=== PATIENT | female | born 1930 | race Caucasian/White ===

== ENCOUNTER 2017-03-27 12:24 | Emergency (ER) | payer MEDICARE ==
[2017-03-27 14:04] LABS: Hematocrit 44 % (35-47); Hemoglobin 14.6 g/dl (12.0-16.0); Mean Corpuscular HGB Conc 33 g/dl (31-36); Mean Corpuscular Hemoglobin 31 pg (27-31); Mean Corpuscular Volume 92 fL (80-97); Mean Platelet Volume 9 um3 (7.4-10.4); Red Blood Count 4.78 10^6/ul (4.0-5.4); Red Cell Distribution Width 14 % (10.5-15); White Blood Count 9.2 10^3/ul (3.5-10.8)
[2017-03-27 14:24] LABS: BUN/Creatinine Ratio 21.7 (8-20); C Reactive Protein 1.31 mg/L (< 5.00); EGFR Non-African American 80.1 (>60); Potassium 3.5 mmol/L (3.5-5.0); Uric Acid 4.5 mg/dL (2.3-6.6)
--- NOTE | 2017-03-27 14:32 | RAD ---
Indication: Atraumatic LEFT knee pain. Comparison: No relevant prior exams available on the [facility]. Technique: AP and crosstable lateral views LEFT knee. Report: Large suprapatellar joint effusion without gross fat fluid level. No cortical disruption or gross trabecular impaction evident to indicate fracture. Osteophytosis most prominent at the lateral joint compartment or in moderately severe lateral joint space narrowing with associated partial flattening of the articular surfaces and subchondral sclerosis. Mild anterior and lateral soft tissue swelling. Peripheral vascular calcifications. IMPRESSION: 1. Large joint effusion without visualized abscess fluid level or conspicuous fracture. 2. As bone density appears decreased a subtle insufficiency fracture is not entirely excluded given unexplained joint effusion. 3. If there is clinical concern for potential septic arthritis joint aspiration would be suggested. 4. Osteoarthritis most prominent at the lateral joint compartment.
[2017-03-27 14:49] LABS: Erythrocyte Sed Rate 11 mm/Hr (0-40)
[2017-03-27] MEDS ORDERED: HYDROcodone/ACETAMIN 5-325 MG* 1 TAB PO ONE (15:17)
[2017-03-27] MEDS ORDERED: HYDROcodone/ACETAMIN 5-325 MG* 1 TAB ONE (16:04)
[2017-03-27 16:14] VITALS: BP 191/119
--- NOTE | 2017-03-29 23:19 | ED ---
Alberto Rivero Rebecca, scribed for Patric Myers MD on 03/27/17 at 1333 . Lower Extremity - HPI Summary HPI Summary: Pt is an 87 y/o F who presents to ED c/o left knee pain. Pain began gradually at approximately 1030 and has been constant since onset. Pain is discrete to the left knee without radiation. When asked, pt reports pain as moderate, though she reported it as severe previously in triage. Sx aggravated by walking , alleviated by nothing. Denies fever, CP, SOB. Denies pain in any other joints. Negative for any recent trauma or injury. Reports a slight increase in activity recently. States she can typically walk without the use of a cane or walker. No PMHx arthritis, gout or injury to the L knee. No PSHx to the L knee. - History of Current Complaint Chief Complaint: EDExtremityLower Stated Complaint: LT LEG PAIN, WEAKNESS Time Seen by Provider: 03/27/17 13:26 Hx Obtained From: Patient Onset of Pain: Hours, Prior to Arrival Onset/Duration: Still Present Severity Initially: Severe Severity Currently: Moderate Pain Intensity: 10 Pain Scale Used: 0-10 Numeric Timing: Constant Location: Is Discrete @ - L knee Character Of Pain: Sharp Associated Signs And Symptoms: Positive: Negative. Negative: Fever Aggravating Factor(s): Ambulation Alleviating Factor(s): Nothing - Allergies/Home Medications Allergies/Adverse Reactions: Allergies Allergy/AdvReac Type Severity Reaction Status Date / Time No Known Allergies Allergy Verified 10/11/16 14:59 Home Medications: Home Medications Aspirin TAB* [Aspirin 325 MG TAB*] 162.5 mg PO DAILY 03/27/17 [History Confirmed 03/27/17] Atenolol TAB* [Tenormin TAB* 50 MG] 50 mg PO DAILY 03/27/17 [History Confirmed 03/27/17] Calcium Carbonate-Vitamin D [Calcium 600 + D] 1 tab PO BID 03/27/17 [History Confirmed 03/27/17] Conjugated Estrogens VAG CM* [Premarin VAG CREAM*] 1 applic VAGINAL BEDTIME 04/07 [History Confirmed 03/27/17] Ibuprofen TAB* [Advil TAB*] 400 mg PO Q6H PRN 03/27/17 [History Confirmed ] Ondansetron TAB* [Zofran 4 MG Tab*] 4 mg PO Q4HR PRN 03/27/17 [History Confirmed 03/27/17] PMH/Surg Hx/FS Hx/Imm Hx Endocrine/Hematology History: Denies: Hx Diabetes Musculoskeletal History: Denies: Hx Rheumatoid Arthritis, Hx Gout Infectious Disease History: No Infectious Disease History: Denies: Traveled Outside the [place] in Last 30 Days - Family History Known Family History: Positive: Other - Negative for arthritis - Social History Alcohol Use: Rare Substance Use Type: Reports: None Smoking Status (MU): Never Smoked Tobacco Review of Systems Negative: Fever, Chills Negative: Erythema Negative: Sore Throat Negative: Chest Pain Negative: Shortness Of Breath, Cough Negative: Abdominal Pain, Vomiting, Nausea Negative: dysuria, hematuria Positive: Arthralgia - L knee pain; negative for pain in other joints. Negative : Myalgia, Edema Negative: Rash Neurological: Other - Negative dizziness All Other Systems Reviewed And Are Negative: Yes Physical Exam - Summary Physical Exam Summary: Constitutional: Well-developed, Well-nourished, Alert. (-) Distressed Skin: Warm, Dry HENT: Normocephalic; Atraumatic Eyes: Conjunctiva normal Neck: Musculoskeletal ROM normal neck. (-) JVD, (-) Stridor, (-) Tracheal deviation Cardio: Rhythm regular, rate normal, Heart sounds normal; Intact distal pulses; The pedal pulses are 2+ and symmetric. Radial pulses are 2+ and symmetric. (-) Murmur Pulmonary/Chest wall: Effort normal. (-) Respiratory distress, (-) Wheezes, (-) Rales Abd: Soft, (-) Tenderness, (-) Distension, (-) Guarding, (-) Rebound Musculoskeletal: (-) Edema, L knee effusion, minimal active ROM, she resists passive ROM due to pain. There is no warmth or erythema to the knee, no redness. Distal sensation and pulses are intact. Lymph: (-) Cervical adenopathy Neuro: Alert, Oriented x3 Psych: Mood and affect Normal Triage Information Reviewed: Yes Vital Signs On Initial Exam: Initial Vitals Temp Pulse Resp BP Pulse Ox 98.2 F 74 17 200/105 98 03/27/17 12:35 03/27/17 12:35 03/27/17 12:35 03/27/17 12:35 03/27/17 12:35 Vital Signs Reviewed: Yes - Andre Coma Scale Coma Scale Total: 15 Diagnostics - Vital Signs Vital Signs Temp Pulse Resp BP Pulse Ox 03/27/17 13:17 79 21 196/119 95 03/27/17 13:10 18 03/27/17 12:40 98.2 F 74 17 200/105 98 03/27/17 12:35 98.2 F 74 17 200/105 98 - Laboratory Result Diagrams: 03/27/17 13:55 03/27/17 13:55 Lab Statement: Any lab studies that have been ordered have been reviewed, and results considered in the medical decision making process. - Radiology Knee XR Radiology Interpretation Completed By: Radiologist - 1. Large joint effusion without visualized abscess fluid level or conspicuous fracture. 2. As bone density appears decreased a subtle insufficiency fracture is not entirely excluded given unexplained joint effusion. 3. If there is clinical concern for potential septic arthritis joint aspiration would be suggested. 4. Osteoarthritis most prominent at the lateral joint compartment. Re-Evaluation - Re-Evaluation First Eval Re-Evaluation Time: 15:13 Change: Unchanged Comment: Discussed XR results with the pt and the possibility of a fracture. Discussed possibility of a wheelchair for D/C as opposed to crutches. Reports that she would prefer a very mild pain medication. Lower Extremity Course/Dx - Course Assessment/Plan: Pt is an 87 y/o F who presents to ED with a CC of moderate/ severe L knee pain since 1030 this morning. Denies fever, chills, SOB. No PMHx arthritis or PSHx on the L knee. Knee XR reveals "1. Large joint effusion without visualized abscess fluid level or conspicuous fracture. 2. As bone density appears decreased a subtle insufficiency fracture is not entirely excluded given unexplained joint effusion. 3. If there is clinical concern for potential septic arthritis joint aspiration would be suggested. 4. Osteoarthritis most prominent at the lateral joint compartment." Discussed care of pt with Dr. Recinos, orthopedics, discussing that she will be in a wheelchair and knee immobilizer. She will call the office tomorrow to set up an appointment for the next 1-2 days. Pt has been hypertensive throughout her visit today, suspected to be due to pain, but she is asymptomatic from hypertension. Pt will be D/C to home with Dx of osteoporosis, knee effusion and cannot r/o fracture, with a follow up with orthopedics. - Diagnoses Differential Diagnosis/HQI/PQRI: Positive: Arthritis, Gout, Septic Arthritis Provider Diagnoses: Osteoporosis, Knee effusion, cannot rule out fracture - Physician Notifications Discussed Care Of Patient With: Curtis Recinos - Discussed that she will be in a wheelchair and knee immobilizer. Time Discussed With Above Provider: 15:37 Discharge - Discharge Plan Condition: Stable Disposition: HOME Prescriptions: HYDROcodone/ACETAMIN 5-325 MG* [[place] 5-325 TAB*] 0.5 tab PO Q8H PRN #6 tab MDD 1.5 PRN Reason: Pain Scale 6-10 Patient Education Materials: Osteoporosis (ED), Swollen Knee Joint (ED) Referrals: Curtis Recinos MD [Medical Doctor] - (Call Dr. Recinos's office tomorrow to set up an appointment in the next 1-2 days. ) The documentation as recorded by the Alberto cevallos Rebecca accurately reflects the service I personally performed and the decisions made by me, Patric Myers MD.
== END 2017-03-27 16:11 | disposition home or self-care (01) ==
LOC: ED 12:24
DX: M81.0 Age-related osteoporosis without current pathological fracture (principal); M25.462 Effusion, left knee; Z79.82 Long term (current) use of aspirin
CPT/HCPCS: 36415; 80048; 84550; 85027; 85652; 86140; 87040; 99283

== ENCOUNTER 2017-12-06 11:40 | Inpatient (IN) | payer MEDICARE ==
[2017-12-06] MEDS ORDERED: NS 0.9% 1000 ML* 1,000 ML IV ONE (11:41)
[2017-12-06 12:03] LABS: ABS Basophils 0.1 10^3/ul (0-0.2); ABS Eosinophils 0 10^3/ul (0-0.6); ABS Lymphocytes 0.8 10^3/ul (1.0-4.8); ABS Monocytes 0.9 10^3/ul (0-0.8); ABS Neutrophils 10.4 10^3/ul (1.5-7.7); ABS Nucleated RBC 0 10^3/ul; Eosinophil % 0.4 % (0-6); Hematocrit 40 % (35-47); Hemoglobin 13.5 g/dl (12.0-16.0); Lymphocyte % 6.7 % (25-47); Mean Corpuscular HGB Conc 34 g/dl (31-36); Mean Corpuscular Hemoglobin 30 pg (27-31); Mean Corpuscular Volume 90 fL (80-97); Mean Platelet Volume 8 um3 (7.4-10.4); Nucleated Red Blood Cells % 0; Platelet Count 213 10^3/ul (150-450); Red Blood Count 4.46 10^6/ul (4.0-5.4); Red Cell Distribution Width 15 % (10.5-15); White Blood Count 12.2 10^3/ul (3.5-10.8)
--- NOTE | 2017-12-06 12:03 | RAD ---
INDICATION: Neurologic changes code cardenas. COMPARISON: There are no prior studies available for comparison. TECHNIQUE: Contiguous axial sections of the brain were obtained from the skull base to the vertex without contrast. FINDINGS: The ventricles, cisterns and sulci are enlarged consistent with diffuse atrophy. There are multiple focal areas of decreased density in the subcortical and periventricular white matter suggestive of moderate to severe chronic small vessel ischemic changes. No other focal abnormality or mass effect is seen. There is no evidence for hemorrhage. There is enlargement of the proximal left middle cerebral artery measuring up to 7 mm in size consistent with either an aneurysm or ectasia. There is mild mucosal thickening within the right maxillary sinus. The visualized portion of the paranasal sinuses and mastoid air cells otherwise appear clear. The results of this exam were called to the referring clinician at 1155 hours. IMPRESSION: 1. NO EVIDENCE FOR GROSS ACUTE INFARCT, MASS EFFECT OR HEMORRHAGE. 2. POSSIBLE ANEURYSM OF THE LEFT MIDDLE CEREBRAL ARTERY RECOMMEND A CT ANGIOGRAM FOR FURTHER EVALUATION. 2. ATROPHY AND MODERATE TO SEVERE CHRONIC SMALL VESSEL ISCHEMIC CHANGES.
[2017-12-06 12:13] LABS: INR 1.1 (0.77-1.02)
[2017-12-06 12:20] LABS: EGFR Non-African American 84.3 (>60)
[2017-12-06] MEDS ORDERED: Iodixanol* (CONTRAST) 320 MG/ML 100 ML SDV IV ONE (12:32)
[2017-12-06 12:50] LABS: Urine Appearance Cloudy; Urine Blood 1+ (Negative); Urine Color Yellow; Urine Ketones Negative (Negative); Urine Protein 1+(30 mg/dL) (Negative); Urine Specific Gravity 1.025 (1.010-1.030); Urine Urobilinogen Negative (Negative)
--- NOTE | 2017-12-06 13:07 | RAD ---
HISTORY: Left-sided weakness COMPARISONS: Head CT dated December 06, 2017 TECHNIQUE: Multiple contiguous axial CT scans were obtained of the head and neck after the administration of nonionic intravenous contrast timed to the systemic arterial phase of contrast enhancement. Coronal and sagittal multiplanar reformations are submitted for review. Multiple 3-D maximum intensity projection reconstructions are also submitted for review. FINDINGS: CTA NECK: AORTIC ARCH: There is calcific atherosclerotic disease of the aortic arch, without ostial or proximal stenosis of the cephalic great vessels. The left vertebral artery originates from the aortic arch.. RIGHT VERTEBRAL ARTERY: The right vertebral artery is patent along its course, without stenosis. LEFT VERTEBRAL ARTERY: The left vertebral artery is patent along its course, without stenosis. DOMINANCE: The right vertebral artery is dominant. RIGHT COMMON CAROTID ARTERY: The right common carotid artery is patent. The right carotid bifurcation occurs at C5-C6 RIGHT INTERNAL CAROTID ARTERY: There is atheromatous disease of the right carotid bifurcation, without right internal carotid artery stenosis by NASCET criteria. RIGHT EXTERNAL CAROTID ARTERY: The right external carotid artery is unremarkable. LEFT COMMON CAROTID ARTERY: The left common carotid artery is patent. The left carotid bifurcation occurs at C4-C5 LEFT INTERNAL CAROTID ARTERY: There is atheromatous disease of the left carotid bifurcation, without left internal carotid artery stenosis by NASCET criteria. LEFT EXTERNAL CAROTID ARTERY: The left external carotid artery is unremarkable. VENOUS CIRCULATION: The venous system is unremarkable. SALIVARY GLANDS: The parotid glands, submandibular glands, sublingual glands are normal. NASAL CAVITY/NASOPHARYNX: The nasal cavity and nasopharynx are normal. ORAL CAVITY/OROPHARYNX: The oral cavity is obscured by streak artifact from dental amalgam. The visualized oral cavity and oropharynx are unremarkable. LARYNGEAL APPARATUS/HYPOPHARYNX: The laryngeal apparatus and hypopharynx are normal. UPPER AIRWAY/UPPER ESOPHAGUS: The visualized upper airway and esophagus are normal. LUNG APICES: The lung apices are clear. THYROID GLAND: The thyroid gland is normal. LYMPH NODES: There is no lymphadenopathy by size criteria. BONES AND SOFT TISSUES: No bone or soft tissue abnormalities are noted. CTA HEAD: INTRACRANIAL CIRCULATION: There is no aneurysm, vascular malformation, occlusion, or stenosis of the visualized intracranial circulation. There is ectasia of the internal carotid arteries bilaterally. The anterior communicating artery complex is clear. There is a origin of the right posterior cerebral artery. VENOUS CIRCULATION: The venous system is unremarkable. PERFUSION: There is no obvious parenchymal perfusion deficit. HEMORRHAGE/INFARCT: There is no hemorrhage or acute infarct. MASSES/SHIFT: There is no mass or shift. EXTRA-AXIAL SPACES: There are no extra-axial fluid collections. SULCI AND VENTRICLES: The sulci and ventricles are normal in size and position for the patient's stated age. CEREBRUM: There is hypoattenuation of the periventricular and subcortical white matter. BRAINSTEM: There are no focal parenchymal abnormalities. CEREBELLUM: There are no focal parenchymal abnormalities. PARANASAL SINUSES: There is mucosal thickening of the maxillary sinuses bilaterally. ORBITS: The orbits are unremarkable. BONES AND SOFT TISSUE: Degenerative changes are noted of the spine OTHER: There is no abnormal enhancement. IMPRESSION: 1. NO INTERNAL CAROTID ARTERY STENOSIS BY NASCET CRITERIA. 2. THERE IS ECTASIA OF THE SUPRACLINOID INTERNAL CAROTID ARTERIES BILATERALLY. NO ANEURYSM, VASCULAR MALFORMATION, OCCLUSION, OR STENOSIS OF THE VISUALIZED INTRACRANIAL CIRCULATION.. 3. CHRONIC SMALL VESSEL ISCHEMIC CHANGE. CPT II Codes: 3100F
--- NOTE | 2017-12-06 13:22 | RAD ---
Indication: Neurological changes; code cardenas. LEFT side weakness, facial droop, slurred speech. Comparison: September 23, 2004 Technique: Upright AP 1240 hours Report: No focal pulmonary lesion, compelling alveolar consolidation, pleural effusion, pneumothorax. Upper normal heart size accounting for portable AP technique and leftward rotation. Unremarkable central pulmonary vasculature and mediastinal contours. Advanced osteoarthritis at the RIGHT glenohumeral joint noted. IMPRESSION: No evidence for acute intrathoracic disease.
[2017-12-06] MEDS ORDERED: LORazepam INJ* 2 MG/ML 1 ML VIAL IV PUSH ONE ×2 (13:39→14:20)
[2017-12-06] MEDS ORDERED: LORazepam INJ* 2 MG/ML 1 ML VIAL ONE (13:41)
[2017-12-06] MEDS: Labetalol IV* 5 MG/ML 20 ML VIAL IV PUSH ONE ×2 (13:49→14:08)
[2017-12-06] MEDS ORDERED: Aspirin EC Low Dose* 81 MG TAB.EC PO SCH (14:00)
[2017-12-06] MEDS ORDERED: hydrALAZINE IV* 20 MG/ML VIAL IV SLOW PU PRN (14:46)
[2017-12-06] MEDS ORDERED: Acetaminophen TAB* 325 MG PO PRN (14:46)
[2017-12-06] MEDS ORDERED: Ondansetron INJ* 2 MG/ML VIAL IV PRN (14:46)
[2017-12-06] MEDS ORDERED: NS 0.9% 1000 ML* 1,000 ML IV SCH (15:00)
[2017-12-06] MEDS ORDERED: cefTRIAXone(*) 1 GM in D5W 50 ML BAG* 50 ML IVPB SCH (15:00)
--- NOTE | 2017-12-06 15:41 | RAD ---
HISTORY: Left-sided weakness COMPARISONS: Head CT dated December 06, 2014 TECHNIQUE: The following sequences were obtained of the head: Sagittal T1-weighted images, axial T2-weighted images, axial FLAIR images, axial susceptibility weighted images, axial T1-weighted images. Additionally, axial diffusion-weighted images were obtained with calculated apparent diffusion coefficients. FINDINGS: HEMORRHAGE/INFARCT: There are small foci of restricted diffusion within the right putamen, consistent with nonhemorrhagic infarct. There is no hemorrhage or acute infarct elsewhere.. MASSES/SHIFT: There is no mass or shift. EXTRA-AXIAL SPACES/MENINGES: There are no extra-axial fluid collections. SULCI AND VENTRICLES: There is diffuse and proportional enlargement of the sulci and ventricles. CEREBRUM: There is confluent elevated T2/flair signal the periventricular and subcortical white matter, including the area of restricted diffusion. BRAINSTEM: There is elevated T2/FLAIR signal within the pontine white matter. CEREBELLUM: There are chronic lacunar infarcts of the right inferior cerebellum. There is a punctate focus of susceptibility artifact within the left inferior cerebellum which may represent a hemangioma versus dystrophic calcification. The cerebellar tonsils are normal in size and position. SELLA: The sella is normal. PINEAL: The pineal region is clear. CP ANGLE/TEMPORAL BONES: The labyrinthine structures are grossly normal. VESSELS: Normal flow-voids are noted within the visualized vertebral vasculature. DIFFUSION ABNORMALITIES: As noted above, there are punctate foci of acute diffusion within the right putamen. PARANASAL SINUSES/MASTOIDS: There is mucosal thickening of the right maxillary sinus. ORBITS: The orbits are unremarkable. BONES AND SOFT TISSUE: No bone or soft tissue abnormalities are noted. OTHER: None IMPRESSION: 1. PUNCTATE FOCI OF RESTRICTED DIFFUSION WITHIN THE RIGHT BASAL GANGLIA CONSISTENT WITH SUBACUTE NONHEMORRHAGIC INFARCT. 2. DIFFUSE INVOLUTIONAL CHANGE WITH EXTENSIVE CHRONIC SMALL VESSEL ISCHEMIC CHANGES.
[2017-12-06] MEDS ORDERED: Aspirin SUPP* 300 MG PR ONE (17:05)
[2017-12-06] MEDS: cefTRIAXone(*) 1 GM in D5W 50 ML BAG* 50 ML IVPB SCH (17:28)
--- NOTE | 2017-12-06 20:01 | HP ---
CC: Dr. Thomas; Dr. Quiroz * HISTORY AND PHYSICAL: DATE OF ADMISSION: 12/06/17 PRIMARY CARE PROVIDER: Dr. Thomas. ATTENDING PHYSICIAN WHILE IN THE HOSPITAL: Dr. Jone Weaver * (report dictated by Michael Reza NP). CHIEF COMPLAINT: 1. Left-sided weakness. 2. Difficulty with speech. HISTORY OF PRESENT ILLNESS: Ms. Birch is an 87-year-old female patient. She is really unable to give much history because she has significant underlying dementia. According to old records, she has a history of hypertension, hyperlipidemia, osteoarthritis, osteoporosis, and dementia, and a history of cataracts. Most of the HPI was obtained from discussion with Dr. Quiroz, reviewing the medical chart, discussion with medical staff. I did leave a message with the patient's daughter as well and I also did review the notes from Nancy. According to Nancy notes, it was noted around 10:30, 10:45 today that they were walking with the patient. She was going for an appointment and they noticed that she was having left-sided weakness and dragging her left leg. They were immediately concerned that she may have had a stroke and they called the EMS services and brought her to the hospital. There were also reports of possible facial droop as well. Dr. Quiroz did get in touch with the family and they felt that she around 9 o'clock this morning was having difficulty with speech via phone. There was concern because she was having significant weakness. A Rafael Giraldo was called. The initial time of onset was noted to be around 10:30 to 10:45, and thought she will be a tPA candidate; however, with the question of her timing of the onset given the history obtained from the patient's daughter, tPA was not given because of unreliable time of onset. Because of concerns of stroke, we were asked to evaluate. There were no again reports of fevers, chills, or any recent illnesses on records from [facility], but the biggest complaint again was left-sided weakness, facial droop. PAST MEDICAL HISTORY: According to old records: 1. Cataracts. 2. Hypertension. 3. Dementia. 4. Hyperlipidemia. 5. Osteoarthritis. 6. Osteopenia. PAST SURGICAL HISTORY: She has had cataract extraction. MEDICATIONS: Home meds according to records include: 1. Milk of mag 30 cc p.o. daily as needed. 2. Tamiflu 75 mg p.o. daily. 3. Tylenol 650 mg p.o. b.i.d. 4. Senna or Colace 1 tablet p.o. daily. 5. Tylenol 650 mg every 6 hours as needed. 6. Atenolol 100 mg daily. 7. Aspirin 81 mg daily. ALLERGIES: No known drug allergies. FAMILY HISTORY: Unable to be obtained. SOCIAL HISTORY: According to old medical records, she does not smoke, does not drink. She does reside at [facility]. Surrogate decision maker is her daughter. REVIEW OF SYSTEMS: Unable to be obtained. PHYSICAL EXAMINATION GENERAL: At this time, Ms. Birch is an 87-year-old female patient. She is sitting in the ED stretcher. She does not appear to be in any acute distress. VITAL SIGNS: Blood pressure 193/159, last blood pressure that was recorded in the monitor was noted to be 190/80; her pulse was 88; respirations were 22; O2 sat was 95%; temperature was 99.1. HEENT: Head: Atraumatic. Eyes: Sclerae are anicteric. Pupils are equal and reactive to light. Throat: Oral mucosa appears to be dry. No oropharyngeal erythema. NECK: Supple. LUNGS: Clear to auscultation. No wheezes, rales, or rhonchi. HEART: Sounds S1, S2. Regular rate and rhythm. No murmurs, rubs, or gallops. ABDOMEN: It was soft, it was flat. Nontender. Bowel sounds were present. EXTREMITIES: She does have difficulty moving the left leg, it is weak. The vessel liner on the left side is weak. She is able to raise and lower her upper extremities. She is able to move the right extremity, she had 5/5 strength. NEUROLOGIC: She is alert to herself only. She is confused to time, place. She does have a bit of a slight facial droop on the right side. She does have a little bit of a weakened vessel liner on the left side and she is unable to really lift the left leg off the stretcher like the right leg. There are no other gross focal deficits. Her speech to me appeared to be clear. SKIN: Intact. DIAGNOSTIC STUDIES/LAB DATA: WBC 12.2, RBC of 4.46, hemoglobin 13.5, hematocrit 40, platelet count 213. INR 1.10, PTT of 27.8. Sodium was 127, potassium 3.6, chloride of 93, bicarb 29, BUN 11, creatinine of 0.66, glucose 94 , lactate 0.8, calcium 8.8. Total bili 0.5, AST 26, ALT 31, alk phos 98. Troponin 0. Albumin is 3.6. Her triglycerides were 224, LDH was 126. Urine showed 1+ blood, 1+ protein, positive nitrites, trace leukocyte esterase, 1+ rbc 's, 1+ bacteria. She had multiple imaging here in the ED starting out with brain CT, impression: No evidence for gross acute infarct, mass effect, or hemorrhage. Possible aneurysm in the left MCA. Recommend CT angiogram for further evaluation. Atrophy and moderate- to-severe chronic small vessel ischemic changes. She did have a chest x-ray obtained today, impression: No evidence for acute intrathoracic disease. She did have an EKG obtained today, there are no previous EKGs for comparison, but it did show a sinus bradycardia, rate of 59, no ST elevations or T-wave inversions were noted, they were flat in V1 only. She had a head CTA obtained as well today, impression: No internal carotid artery stenosis by NASCET criteria. 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 No aneurysm, vascular malformation, occlusion, or stenosis of the visualized intracranial circulation. Chronic small vessel ischemic changes. Old medical records were reviewed. ASSESSMENT AND PLAN: Ms. Birch is an 87-year-old female patient coming into the ED today with complaints of left-sided weakness. She will be admitted under inpatient status for: 1. Cerebrovascular accident. At this point, Dr. Quiroz did evaluate the patient. She passed bedside swallow evaluation. She will be given p.o. aspirin daily. At this point, we will allow for permissive hypertension. We will allow her diastolics to run less than a 100 and her systolics to run less than 200, so I wrote for p.r.n. hydralazine with these parameters. We will go ahead and get neuro checks every 2 hours. We will also go ahead and get an MRI of the brain. Echo has been ordered by Dr. Quiroz. We will place her on telemetry. We will check lipids in the morning as fasting and A1c as well. I will continue to follow. I did order a PT evaluation as well for tomorrow. 2. Hypertension. Again, allowing for permissive hypertension, p.r.n. hydralazine is ordered. 3. Hyperlipidemia. We will check lipid panel in the morning. Consider adding a statin. 4. Dementia. We will continue supportive care. 5. Urinary tract infection. I have ordered Rocephin for the patient. 6. Hyponatremia. This is mild hyponatremia. I am getting a urine sodium and urine osmol and serum osmol to help us try to delineate where this is deriving from. I did order some fluids. We will repeat this in the morning. 7. Osteoarthritis. Continue p.r.n. Tylenol. 8. Osteopenia. Follow with primary. 9. DVT prophylaxis. In the setting of an acute cerebrovascular accident, I am going to hold on the heparin for the first 24 hours. We will go ahead and put on SCDs and then we can start heparin palpably tomorrow. 10. Fluids, electrolytes, and nutrition. She can have a heart healthy diet. 11. Code status. She does have a MOLST form in the computer for DNR. TIME SPENT: On the admission was approximately 60 minutes, greater than half the time was spent [id number] with the patient obtaining my history and physical, other half of the time spent going over the plan of care with the patient and implementing plan of care. I did discuss plan of care with my attending, Dr. Weaver; she is in agreement. MICHAEL REZA NP [id number]/[facility] #: [id number]
--- NOTE | 2017-12-06 22:21 | CONS ---
CC: Dr. Thomas * CONSULTATION REPORT: DATE OF ADMISSION: 12/06/17 DATE OF CONSULT: 12/06/17 LOCATION: Currently in ER, bed 10. PRIMARY CARE PROVIDER: Dr. Barrett Thomas. REASON FOR CONSULTATION: Slurred speech and left-sided weakness. HISTORY OF PRESENT ILLNESS: Ms. Birch is a very nice 87-year-old female, who has a history of dementia, hypertension, fibrocystic disease of the breast, hyperlipidemia, osteoarthritis, osteopenia, skin cancer, basal cell carcinoma in 1987, constipation, shingles. She is unable to give me much history. She has moderate dementia. She was in her usual state of health when around 10:[address] to see her care provider at [facility], they noticed that her left foot was dragging, her left face was drooping, and she had a weaker environmental analyst on the left , and she was slurring her speech. Prior to that, she was able to walk to her apartment. Initially, it was reported that the time of onset of her symptoms was 10:45. I subsequently talked with her daughter, who states that she talked to her around 9:15 and at that time, she had slurring of her speech. It is unclear when those symptoms began, so last known normal is unclear at this point , but was sometime prior to 9 a.m. She lives with her , who also has dementia and is not a good historian and it has been difficult to determine when her last known normal was. In the ER, she had an NIH stroke scale of 4. She had some facial droop on the left, some very mild dysarthria. She had loss of sensation on the left and some inattention on the left. They said per the report from the assisted living facility, she seemed to have improved. When I examined her, she had no significant left-sided weakness and no drift apparent. During the course of our evaluation, she seemed to have improved more so and her speech becoming more pronounced and less dysarthric. She does remain confused, which apparently per her daughter is her baseline. There has been no reported chest pain, shortness of breath. No reported fevers that we are aware of. No reported recent illnesses. She was seen by primary care provider on 07/09; at that time, it was noted that she was wandering some. She was briefly admitted into the longterm facility, was observed there, and then sent back to live with her and adjusting well. There had been some wandering , but no dangerous behaviors. It was also noted that her blood pressure was elevated at that time and that they were considering adding another blood pressure medication. In the ER, she did have a CT scan of the head, which I reviewed the films, I agree with the findings. There was a suspicion of a left MCA aneurysm and CT angiogram was recommended. There was no evidence of any acute bleeding or acute changes. CT angiogram was subsequently done and showed some ectasia of the supraclinoid internal carotid arteries bilaterally, but no aneurysm, vascular malformation, occlusion. No stenosis was visualized, intracranial circulation. No carotid artery stenosis noted. I did review those films as well and agree. Her EKG showed some sinus bradycardia. Since admission to the ER, she seems to have improved as noted above. She has had no new symptoms. She denies any problems at this time and seems to have poor insight into her condition. PAST MEDICAL HISTORY: As noted above. She has had some skin biopsies as well in 2002. MEDICATIONS: At home include: 1. Acetaminophen 650 mg twice daily as well as as needed for pain. 2. Aspirin 81 mg daily. 3. Atenolol 100 mg daily. 4. Magnesium hydroxide. 5. Milk of magnesia 30 mL by mouth as needed. 6. Senna-S 1 tablet by mouth daily. ALLERGIES: No known drug allergies. FAMILY HISTORY: Unknown. SOCIAL HISTORY: She lives with her , who also has dementia. She has never smoked. She occasionally drinks alcohol and no reported drug use. She attends exercise class and swimming 3 times a week and walks 1 mile weekly. She is normally fairly active. REVIEW OF SYSTEMS: A 14-organ systems was difficult. She again has poor insight. Denies any current issues. Denies any headache, vision changes. She is unaware of her speech difficulties. Denies any focal weakness, numbness, tingling, or pain. No chest pain, shortness of breath, dyspnea on exertion. No problems. No musculoskeletal aches or pains. She denies any issues. PHYSICAL EXAM: Vital Signs: Temp of 97, blood pressure 156/90, O2 sat of 96%, respiratory rate of 16, pulse rate of 55. In general: She is a thin, well- developed female, in no acute distress. She is sitting in her hospital bed. She is pleasant, well dressed, well groomed. HEENT: She is normocephalic, atraumatic. Sclerae are anicteric. Mucous membranes are moist. Oropharynx is clear. Nares are patent. Neck: Supple. No thyromegaly. No carotid bruits. No meningismus. Chest: Clear to auscultation bilaterally. Cardiovascular: Bradycardic. Regular rhythm. No murmurs, gallops, or rubs. Abdomen: Scaphoid , nontender. Extremities: No clubbing, cyanosis, or edema. She has some scattered bruising. Neurologic examination: She is awake, alert. She is oriented to person. Speech is fluent. There is some mild dysarthria. Her recall is poor. Mood is dysthymic. Affect, mood congruent. Cranial nerves II through XII, pupils are equal, round, and reactive to light. Extraocular muscles are intact. Visual hanna appear full to confrontation and blink. There is no nystagmus noted. Facial sensation is intact throughout. She has a left lower facial droop when smiling. Hearing is diminished bilaterally. Tongue is midline. Palate raises symmetrically. Motor Exam: She spontaneously moves all extremity, has good resistance, 5/5 throughout with no drift in the upper and lower extremities bilaterally. Tone is normal. DTRs are 1+ in the upper extremities, trace at the patella bilaterally, trace at the ankles bilaterally. Equivocal Babinski. Sensation, she has some loss of pinprick and light touch in the left leg greater than the left arm and she seems to neglect and has some extinguishing on the left side. Gait was not tested at this time. There are no tremors noted at rest. [id number] was slow but intact without tremors or dysdiadochokinesia. DIAGNOSTIC STUDIES/LAB DATA: Lab work includes a complete metabolic profile with a sodium of 127, chloride of 93, glucose of 104. Total protein of 6.2. Triglycerides of 224, cholesterol of 228, LDL of 126, HDL of 57. Urine shows positive nitrite, 1+ blood, trace leukocyte esterase, 1+ bacteria. CBC with diff shows a white count of 12.2 with 84.9% neutrophils. INR of 1.10, PTT of 27.8. ASSESSMENT AND PLAN: Ms. Birch is an 87-year-old female with a known history of dementia, history of hypertension, hyperlipidemia, osteoarthritis, who is on an aspirin at home, presents to the hospital with onset of left-sided findings including left facial droop, left numbness, and some neglect and some dysarthria. Her symptoms seemed to have improved per the initial report from the nurse who I spoke with on the phone. Initially, her symptoms were reported to began at 10:45; but when I spoke with her daughter, her daughter states that she spoke with her around 9 o'clock and she was already having slurred speech. It is unclear when those symptoms started, so her last known normal is unknown at this time. She was not a good tPA candidate. The plan will be to admit her to the hospital for further stroke workup including MRI of the brain, echocardiogram. I will check labs to rule out reversible causes of stroke. I will continue her aspirin 81 mg daily. I will give her a dose now. We will add a statin medication given her lipid, LDL goal will be less than 70. Would allow for some permissive hypertension at this point and can add labetalol for systolic blood pressure greater than 210, diastolic blood pressure greater than 100. Monitor her on telemetry for any evidence of atrial fibrillation or arrhythmia. I defer to the primary care team regarding management of her hyponatremia and workup of that. We will monitor for any evidence of diabetes. She is a nonsmoker. We will get Speech Therapy to evaluate her and make her n.p.o. for now until she has had a bedside dysphagia swallowing study. She will likely need physical therapy as well once she is stabilized. I will continue to follow her closely and make further recommendations if necessary. Thank you for the opportunity to participate in her care. Her daughter's contact information name is Suzanne Alcaraz, telephone number is [phone] and she is the healthcare proxy. [id number]/[facility] #: [id number] [facility] THROAT HOSPITALDedra
[2017-12-07 05:21] LABS: ABS Basophils 0.1 10^3/ul (0-0.2); ABS Eosinophils 0.1 10^3/ul (0-0.6); ABS Lymphocytes 1.2 10^3/ul (1.0-4.8); ABS Monocytes 0.8 10^3/ul (0-0.8); ABS Neutrophils 8.1 10^3/ul (1.5-7.7); ABS Nucleated RBC 0 10^3/ul; Eosinophil % 0.6 % (0-6); Hematocrit 36 % (35-47); Hemoglobin 12.4 g/dl (12.0-16.0); Lymphocyte % 11.9 % (25-47); Mean Corpuscular HGB Conc 34 g/dl (31-36); Mean Corpuscular Hemoglobin 31 pg (27-31); Mean Corpuscular Volume 90 fL (80-97); Mean Platelet Volume 9 um3 (7.4-10.4); Nucleated Red Blood Cells % 0; Platelet Count 201 10^3/ul (150-450); Red Blood Count 4.03 10^6/ul (4.0-5.4); Red Cell Distribution Width 15 % (10.5-15); White Blood Count 10.2 10^3/ul (3.5-10.8)
[2017-12-07 05:34] LABS: EGFR Non-African American 113.5 (>60)
[2017-12-07] MEDS: Aspirin Low Dose CHEW TAB* 81 MG PO SCH (08:47)
[2017-12-07] MEDS: Senna TAB PO SCH (08:47)
[2017-12-07] MEDS: Oseltamivir CAP* 30 MG CAP PO SCH (08:47)
[2017-12-07] MEDS: Docusate CAP* 100 MG PO SCH (08:47)
--- NOTE | 2017-12-07 08:53 | PN ---
Subjective Date of Service: 12/07/17 Interval History: Some intermittent agitation overnight and this morning. More confused earlier this am but seems slightly improved now per the nurse. No new focal findings. Able to swallow safely but has some dysarthria. Remains weak on the left side. --MRI: reviewed films. Right basal ganglia acute stroke, atrophy noted. Agree with findings --CTA: reviewed films. No significant stenosis, no aneurysms noted. Ectasia of supraclinoid ICAs bilaterally --Echo pending Objective Active Medications: Acetaminophen (Tylenol Tab*) 650 mg PO Q4H PRN PRN Reason: FEVER/PAIN Last Admin: 12/07/17 01:21 Dose: 650 mg Aspirin (Aspirin Low Dose Tab*) 81 mg PO DAILY [facility] Atorvastatin Calcium (Lipitor*) 20 mg PO 1700 [facility] Docusate Sodium (Colace Cap*) 100 mg PO DAILY [facility] Hydralazine HCl (Apresoline Iv*) 5 mg IV SLOW PU Q6H PRN PRN Reason: SYSTOLIC BP GREATER THAN: Ceftriaxone Sodium 1 gm/ (Dextrose) 50 mls @ 200 mls/hr IVPB 1700 [facility] Last Admin: 12/06/17 17:28 Dose: 200 mls/hr Ondansetron HCl (Zofran Inj*) 4 mg IV Q6H PRN PRN Reason: NAUSEA Oseltamivir Phosphate (Tamiflu Cap*) 30 mg PO DAILY [facility] Senna (Senokot Tab*) 1 tab PO DAILY [facility] Vital Signs 12/06/17 12/06/17 12/06/17 16:05 19:35 19:39 Temperature 98.3 F 97.5 F Pulse Rate 58 66 Respiratory 16 16 Rate Blood Pressure 132/69 190/80 (mmHg) O2 Sat by Pulse 96 96 Oximetry 12/06/17 12/06/17 12/06/17 20:00 21:32 23:44 Temperature 97.8 F Pulse Rate 56 Respiratory 20 24 Rate Blood Pressure 140/80 131/72 (mmHg) O2 Sat by Pulse 94 Oximetry 12/07/17 12/07/17 03:30 07:24 Temperature 97.5 F 97.9 F Pulse Rate 56 54 Respiratory 24 24 Rate Blood Pressure 121/67 170/80 (mmHg) O2 Sat by Pulse 93 94 Oximetry Oxygen Devices in Use Now: None Neurology Exam: General: Awake, Alert, Oriented x3 HEENT: Normocephalic/atraumatic, sclera anicteric, mucous membranes moist Neck: Supple Chest: Clear to auscultation bilaterally Cardiovascular: Regular rate and rhythm without murmurs, rubs, gallops Abdomen: Soft, nontender/nondistended Extremities: No clubbing, cyanosis, or edema Neurological Findings: Awake, Alert, oriented X person, "hospital," sitting up eating breakfast Speech: fluent with mild dysarthria, no aphasia Cranial Nerve: PEERL, EOM intact, VFF, no nystagmus, left lower facial droop, stable, hearing diminished bilaterally, palate elevates symmetrically, tongue midline Motor: 5/5 with good resistance on the right, no drift. 4/5 proximal and distal LUE with drift, 4/5 proximal weakness and 4+/5 on the LLE Sensation: Difficult exam but seems diminished on the left arm and leg. Neglect on the left side noted Deep Tendon Reflex: 2+ symmetric in the upper/lower extremities, Babinski - equivocla Finger to nose, rapid alternating movements intact without tremor, slower on the left side Result Diagrams: 12/07/17 04:50 12/07/17 04:50 Assessment/Plan 87 year old with history of HTN, hyperlipidemia, osteoarthritis, dementia, presented to ER yesterday with unclear last know normal, not good tPA candidate. MRI shows acute right basal ganglia stroke. CTA shows no significant stenosis, echo pending. --continue ASA --On statin, adjust over time for LDL < 70 --Permissive HTN X 24-48 hours, can start to lower with medications tomorrow --Speech: stable, mild to moderate dysarthria, Speech therapy ordered --PT has been ordered --Non-diabetic, non-smoker --Follow up Echo --Hyponatremia improving on fluids: medicine is following --Dementia: longstanding. Will evaluate more fully as outpatient, consider starting memory medications as outpatient --I will be off service this afternoon, will sign-out to Dr. Roman later today.
[2017-12-07] MEDS ORDERED: Senna/Docusate (NF) TAB PO SCH (09:00)
[2017-12-07] MEDS: Atenolol TAB* 50 MG PO SCH (13:39)
--- NOTE | 2017-12-07 14:22 | ECHO ---
Patient: CARON CALABRESE [facility] Rec#: [id number] : 1930 Date: 12/07/2017 Age: 87y Height: 162.6 cm / 64.0 in Weight: 45.4 kg / 100.1 lbs Sex: F BSA: 1.5 Room#: 436 Admit Date#: 12/06/2017 Type: Inpatient Referring: Roshan Quiroz Reading: Radha Link MD Jack Prizer: Irene Morataya RN RDCS CC: Barrett Thomas MD Transthoracic Echocardiogram Indication: CVA BP: 156/90 HR: 54 Rhythm: Bradycardia Findings History: HTN, HLD, dementia Technical Comments: The study quality is fair. Completed at 0850. Left Ventricle: The left ventricular chamber size is normal. Mild to moderate concentric left ventricular hypertrophy is observed. Global left ventricular wall motion and contractility are within normal limits. There is normal left ventricular systolic function. The estimated ejection fraction is 55-60%. There is an E to A reversal in the mitral valve flow pattern suggestive of diastolic dysfunction. Left Atrium: The left atrial chamber size is normal. Right Ventricle: The right ventricular chamber size and systolic function are within normal limits. Right Atrium: The right atrial cavity size is normal. Aortic Valve: The aortic valve structure is normal. The aortic valve leaflets are mildly thickened. There is moderate thickening of the non coronary cusp. Systolic excursion of the non coronary cusp is reduced. There is trace to mild aortic regurgitation. There is mild aortic stenosis. The mean gradient of the aortic valve is 3.9 mmHg. The peak instantaneous gradient of the aortic valve is 7.3 mmHg. The aortic valve area, by peak velocities, is calculated at 1.8 cm2. The aortic valve area, by VTI's, is calculated at 1.7 cm2. Mitral Valve: There is mitral annular calcification. The mitral valve leaflets are mildly thickened. There is mild mitral regurgitation. There is no evidence of mitral stenosis. Tricuspid Valve: The tricuspid valve leaflets are normal. There is mild tricuspid regurgitation. There is evidence of borderline pulmonary hypertension. There is no tricuspid stenosis. Pulmonic Valve: The pulmonic valve appears normal. There is trace to mild pulmonic regurgitation. There is no pulmonic stenosis. Pericardium: There is no significant pericardial effusion. Aorta: There is no dilatation of the ascending aorta. There is no dilatation of the aortic arch. There is no dilation of the aortic root. Pulmonary Artery: The main pulmonary artery appears normal. Venous: The venous system is not well visualized. The inferior vena cava is not visualized. Summary: There was not any prior study for comparison. Conclusions Mild to moderate concentric left ventricular hypertrophy is observed. There is normal left ventricular systolic function. The estimated ejection fraction is 55-60%. There is an E to A reversal in the mitral valve flow pattern suggestive of diastolic dysfunction. There is trace to mild aortic regurgitation. There is mild aortic stenosis. There is mild mitral regurgitation. There is mild tricuspid regurgitation. There is trace to mild pulmonic regurgitation. Measurements Name Value Normal Range RVDdMajor (2D) 3.7 cm (2.2 - 4.4) RAd ISD 4CH 4.3 cm (3.4 - 4.9) RA (A4C)W 3.5 cm (2.9 - 4.6) IVSd (2D) 1.3 cm (0.6 - 1) LVPWd (2D) 1.3 cm (0.6 - 1) LVIDd (2D) 4 cm (3.6 - 5.4) LVIDs (2D) 2.6 cm - LV FS (2D) 35 % (25 - 45) Aortic Annulus 1.7 cm (1.4 - 2.6) Ao root diameter (2D) 2.8 cm (2.1 - 3.5) Ascending Ao 3.1 cm (2.1 - 3.4) Aortic arch 2.8 cm (1.8 - 3.4) LA dimension (AP) 2D 3.2 cm (2.3 - 3.8) LAd ISD 4CH 4.6 cm (2.9 - 5.3) LA ISD 4CH W 3.7 cm (2.5 - 4.5) Name Value Normal Range LA ESV SP 4CH (A/L) 28 ml - LA ESV SP 2CH (A/L) 40 ml - LA ESV BP (A/L) 35 ml - LA ESV BP (A/L) index 24 ml/m2 - LA ESV SP 4CH (MOD) 27 ml - LA ESV SP 2CH (MOD) 37 ml - Name Value Normal Range MV E-wave Vmax 0.61 m/sec - MV deceleration time 335 msec - MV A-wave Vmax 1 m/sec - MV E:A ratio 0.6 ratio - LV septal e' Vmax 0.04 m/sec - LV lateral e' Vmax 0.05 m/sec - LV E:e' septal ratio 15.3 ratio - LV E:e' lateral ratio 12.2 ratio - Name Value Normal Range AV Vmax 1.4 m/sec - AV VTI 28.7 cm - AV peak gradient 7.3 mmHg - AV mean gradient 3.9 mmHg - LVOT diameter 1.9 cm - LVOT Vmax 0.88 m/sec - LVOT VTI 17.6 cm - LVOT peak gradient 3.1 mmHg - LVOT mean gradient 1.6 mmHg - DOI (VTI) 0.61 ratio - DOI (Vmax) 0.63 ratio - EWELINA (continuity Vmax) 1.8 cm2 - EWELINA (continuity VTI) 1.7 cm2 - CEE Vmax 0.5 m/sec - Name Value Normal Range TR Vmax 2.6 m/sec - TR peak gradient 27 mmHg - RAP 8 mmHg - RVSP 35 mmHg - Name Value Normal Range PV Vmax 0.86 m/sec -
[2017-12-07] MEDS ORDERED: amLODIPine TAB* 5 MG PO SCH (15:00)
[2017-12-07] MEDS ORDERED: hydrALAZINE IV* 20 MG/ML VIAL IV SLOW PU PRN (16:31)
--- NOTE | 2017-12-07 16:51 | ED ---
Afshin Rivero Angela, scribed for Presley Hugo MD on 12/06/17 at 1142 . Neurological HPI - HPI Summary HPI Summary: OVERHEAD CODE MENON AT 11:34 ETA 10 minutes. This pt is a 87 y/o female presenting to [facility] for slurred speech, left sided facial droop, and left sided weakness. Pt arrives to the ED at 11:40 AM. EMS reports the nurse at the prison was walking the pt when she noticed that the pt was dragging her left leg. Upon EMS arriving to the prison, EMS noticed pt had left sided facial droop and slurred speech. Per EMS, pt was last seen normal 09:20. - History of Current Complaint Stated Complaint: CODE MENON Hx Obtained From: EMS Onset/Duration: Sudden Onset, Still Present Timing: Sudden Onset Current Severity: Moderate Neurological Deficit Location: Facial - left sided facial droop, LUE, LLE Character: Weak - left sided, Other: - facial droop, slurred speech Aggravating: Nothing Alleviating: Nothing Associated Signs and Symptoms: Positive: Weakness - left sided, Impaired Speech - slurred speech - Allergy/Home Medications Allergies/Adverse Reactions: Allergies Allergy/AdvReac Type Severity Reaction Status Date / Time No Known Allergies Allergy Verified 10/11/16 14:59 Home Medications: Home Medications Acetaminophen TAB* [Tylenol TAB*] 650 mg PO BID 12/06/17 [History Confirmed ] Acetaminophen TAB* [Tylenol TAB*] 650 mg PO Q6H PRN 12/06/17 [History Confirmed 12/06/17] Aspirin Low Dose CHEW TAB* [Aspirin Low Dose TAB*] 81 mg PO DAILY 12/06/17 [ History Confirmed 12/06/17] Magnesium Hydroxide LIQ* [Milk of Magnesia LIQ*] 30 ml PO DAILY PRN 12/06/17 [ History Confirmed 12/06/17] Oseltamivir CAP* [Tamiflu CAP*] 75 mg PO DAILY 12/06/17 [History Confirmed 12/06] Senna/Docusate (NF) [Sennokot-S] 1 tab PO DAILY 12/06/17 [History Confirmed ] PMH/Surg Hx/FS Hx/Imm Hx Endocrine/Hematology History: Denies: Hx Diabetes Cardiovascular History: Reports: Hx Hypertension Musculoskeletal History: Denies: Hx Rheumatoid Arthritis, Hx Gout - Family History Known Family History: Positive: Unknown - poor historian, pt has dementia, Other - Negative for arthritis - Social History Alcohol Use: Rare Substance Use Type: Reports: None Smoking Status (MU): Never Smoked Tobacco Review of Systems Negative: Fever, Chills Neurological: Other - slurred speech, left sided facial droop Positive: Weakness - left sided All Other Systems Reviewed And Are Negative: Yes Physical Exam - Summary Physical Exam Summary: VITAL SIGNS: Reviewed. GENERAL: Patient is a well-developed and nourished female who is lying comfortable in the stretcher. Patient is not in any acute respiratory distress. HEAD AND FACE: No signs of trauma. No ecchymosis, hematomas or skull depressions. No sinus tenderness. EYES: PERRLA, EOMI x 2, No injected conjunctiva, no nystagmus. EARS: Hearing grossly intact. Ear canals and tympanic membranes are within normal limits. MOUTH: Oropharynx within normal limits. NECK: Supple, trachea is midline, no adenopathy, no JVD, no carotid bruit, no c- spine tenderness, neck with full ROM. CHEST: Symmetric, no tenderness at palpation LUNGS: Clear to auscultation bilaterally. No wheezing or crackles. CVS: Regular rate and rhythm, S1 and S2 present, no murmurs or gallops appreciated. ABDOMEN: Soft, non-tender. No signs of distention. No rebound no guarding, and no masses palpated. Bowel sounds are normal. EXTREMITIES: FROM in all major joints, no edema, no cyanosis or clubbing. NEURO: Alert and oriented x 3. No acute neurological deficits. Speech is normal and follows commands. SKIN: Dry and warm Triage Information Reviewed: Yes Vital Signs Reviewed: Yes - [place] Coma Scale Best Eye Response: 4 - Spontaneous Best Motor Response: 6 - Obeys Commands Best Verbal Response: 5 - Oriented Coma Scale Total: 15 Diagnostics - Laboratory Result Diagrams: 12/06/17 11:55 12/06/17 13:10 Lab Statement: Any lab studies that have been ordered have been reviewed, and results considered in the medical decision making process. - Radiology Chest XR Xray Interpretation: No Acute Changes - IMPRESSION: No evidence for acute intrathoracic disease. Dr. Hugo has reviewed this radiology report. Radiology Interpretation Completed By: Radiologist - CT Brain CT CT Interpretation: Positive (See Comments) - IMPRESSION: 1. No evidence for gross acute infarct, mass effect or hemorrhage. 2. Possible aneurysm of the left middle cerebral artery recommend a CT angiogram for further evaluation. 3. Atrophy and moderate to severe chronic small vessel ischemic changes. Dr. Hugo has reviewed this radiology report. CT Interpretation Completed By: Radiologist Head/Neck CTA CT Interpretation: Positive (See Comments) - IMPRESSION: 1. No internal carotid artery stenosis by nascet criteria. 2. 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 No aneurysm, vascular malformation, occlusion, or stenosis of the visualized intracranial circulation. 3. Chronic small vessel ischemic change. Dr. Hugo has reviewed this radiology report. CT Interpretation Completed By: Radiologist - EKG 11:45 Cardiac Rate: Bradycardia EKG Rhythm: Sinus Bradycardia - at 59 bpm EKG Interpretation: No ST elevation. NIH Scale - NIH Scale Level of Consciousness: Alert/Keenly Responsive Ask Patient the Month and His/Her Age: Both Correct Ask Pt to Open/Close Eyes and Lifter Driver/Release Non-Paretic Hand: Both Correctly Best Gaze (Only Horizontal Eye Movement): Normal Visual Field Testing: No Visual Loss Facial Paresis-Pt to Smile & Close Eyes or Grimace Symmetry: Normal/Symmetrical Motor Function - Right Arm: No Drift-Holds 10 Seconds Motor Function - Left Arm: Drifts LT 10 seconds Motor Function - Right Leg: No Drift-Holds 10 Seconds Motor Function - Left Leg: Drifts LT 10 seconds Limb Ataxia-Must be out of Proportion to Weakness Present: Absent Sensory (Use Pinprick to Test Arms/Legs/Trunk/Face): Normal Best Language (Describe Picture, Name Items): No Aphasia Dysarthria (Read Several Words): Slurs Some Words Extinction and Inattention: No Abnormality Total Score: 3 Re-Evaluation - Re-Evaluation First Eval Re-Evaluation Time: 12:00 Comment: Dr. Quiroz is at bedside. Course/Dx - Course Assessment/Plan: OVERHEAD CODE MENON AT 11:34 ETA 10 minutes. This pt is a 87 y/ o female presenting to [facility] for slurred speech, left sided facial droop, and left sided weakness. Pt arrives to the ED at 11:40 AM. EMS reports the nurse at the prison was walking the pt when she noticed that the pt was dragging her left leg. Upon EMS arriving to the prison, EMS noticed pt had left sided facial droop and slurred speech. Per EMS, pt was last seen normal 09:20. Test results without any significant abnormalities except for WBC of 12.2, sodium of 127. Urinalysis is positive for UTI. In the ED course the pt was given IV fluids and Cefepime for UTI. We called a Code Menon at 11:34. Brain CT : 1. No evidence for gross acute infarct, mass effect or hemorrhage. 2. Possible aneurysm of the left middle cerebral artery recommend a CT angiogram for further evaluation. 3. Atrophy and moderate to severe chronic small vessel ischemic changes. I discussed the case with Dr. Quiroz, neurologist, who reports the pt is not candidate for tPA because the onset of symptoms is not clear and the pt is improving. He recommended a CTA. Head Neck. CTA: 1. No internal carotid artery stenosis by nascet criteria. 2. 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 No aneurysm, vascular malformation, occlusion, or stenosis of the visualized intracranial circulation. 3. Chronic small vessel ischemic change. After CTA results, Dr. Quiroz recommends the pt to be admitted to the hospitalist services. I discussed the test results and findings with Dr. Weaver, hospitalist, who accepted the pt for admission. - Diagnoses Provider Diagnoses: Ischemic cerebrovascular accident (CVA) During the Visit The Following Alert/Code Occurred: Code Menon - Overhead at 11: 34, ETA 10 minutes. - Physician Notifications Discussed Care Of Patient With: Marcy Quiroz Time Discussed With Above Provider: 12:10 Instructed by Provider To: Other - I discussed pt care with Dr. Quiroz, neurologist, who reports that after his evaluation, the pt is not a candidate for tPA since the pt is getting better and there is a question of an aneurysm. Onset of symptoms began at 10:45. [14:18] I discussed with Dr. Weaver, hospitalist, who has agreed to admit the pt. - Critical Care Time Critical Care Time: 75-104 min Discharge - Discharge Plan Condition: Stable Disposition: ADMITTED TO [facility] The documentation as recorded by the Afshin cevallos Angela accurately reflects the service I personally performed and the decisions made by me, Presley Hugo MD.
[2017-12-07] MEDS ORDERED: Atorvastatin* 20 MG TAB PO SCH (17:00)
[2017-12-07] MEDS ORDERED: amLODIPine TAB* 5 MG PO ONE (17:00)
[2017-12-07] MEDS: cefTRIAXone(*) 1 GM in D5W 50 ML BAG* 50 ML IVPB SCH (17:03)
--- NOTE | 2017-12-07 18:51 | PN ---
Subjective Date of Service: 12/07/17 Interval History: ECHO with no e/o of clot. no bubble study. left arm weakness, drift, left leg weakness. hypertensive, 200s systollically, up to 230. [facility] house arrranged but given HTN not ready. Ecoli UTI. statin added. no afib on tele. Objective Active Medications: Acetaminophen (Tylenol Tab*) 650 mg PO Q4H PRN PRN Reason: FEVER/PAIN Last Admin: 12/07/17 01:21 Dose: 650 mg Amlodipine Besylate (Norvasc Tab*) 10 mg PO DAILY [facility] Aspirin (Aspirin Low Dose Tab*) 81 mg PO DAILY [facility] Last Admin: 12/07/17 08:47 Dose: 81 mg Atenolol (Tenormin Tab*) 100 mg PO DAILY [facility] Last Admin: 12/07/17 13:39 Dose: 100 mg Atorvastatin Calcium (Lipitor*) 20 mg PO 1700 [facility] Last Admin: 12/07/17 17:04 Dose: 20 mg Docusate Sodium (Colace Cap*) 100 mg PO DAILY [facility] Last Admin: 12/07/17 08:47 Dose: 100 mg Hydralazine HCl (Apresoline Iv*) 10 mg IV SLOW PU Q2H PRN PRN Reason: SYSTOLIC BP GREATER THAN: Last Admin: 12/07/17 17:03 Dose: 10 mg Ceftriaxone Sodium 1 gm/ (Dextrose) 50 mls @ 200 mls/hr IVPB 1700 [facility] Last Admin: 12/07/17 17:03 Dose: 200 mls/hr Ondansetron HCl (Zofran Inj*) 4 mg IV Q6H PRN PRN Reason: NAUSEA Oseltamivir Phosphate (Tamiflu Cap*) 30 mg PO DAILY [facility] Last Admin: 12/07/17 08:47 Dose: 30 mg Senna (Senokot Tab*) 1 tab PO DAILY [facility] Last Admin: 12/07/17 08:47 Dose: 1 tab Vital Signs - 8 hr 12/07/17 12/07/17 12/07/17 11:14 11:30 15:23 Temperature 97.7 F 98.3 F Pulse Rate 67 74 Respiratory 20 20 Rate Blood Pressure 203/90 204/104 230/122 (mmHg) O2 Sat by Pulse 95 97 Oximetry Oxygen Devices in Use Now: None Appearance: NAD, frail. Eyes: No Scleral Icterus, PERRLA Neck: NL Appearance and Movements; NL JVP, Trachea Midline Respiratory: Symmetrical Chest Expansion and Respiratory Effort, Clear to Auscultation Cardiovascular: NL Sounds; No Murmurs; No JVD, RRR Abdominal: NL Sounds; No Tenderness; No Distention, No Hepatosplenomegaly Extremities: No Edema Skin: No Rash or Ulcers, No Nodules or Sclerosis Neurological: - - oriented to name but not place or time. left arm drift, energy efficiency finance manager 3 +/5, bicep 4-/5. leg 4-/5. left nasolabial facial droop. EOMI Nutrition: Taking PO's Result Diagrams: 12/07/17 04:50 12/07/17 04:50 Additional Lab and Data: Laboratory Results - last 24 hr 12/06/17 12/07/17 12/07/17 16:31 04:50 04:50 WBC 10.2 RBC 4.03 Hgb 12.4 Hct 36 MCV 90 MCH 31 MCHC 34 RDW 15 Plt Count 201 MPV 9 Neut % (Auto) 79.5 Lymph % (Auto) 11.9 L Person % (Auto) 7.4 Eos % (Auto) 0.6 Baso % (Auto) 0.6 Absolute Neuts (auto) 8.1 H Absolute Lymphs (auto) 1.2 Absolute Monos (auto) 0.8 Absolute Eos (auto) 0.1 Absolute Basos (auto) 0.1 Absolute Nucleated RBC 0 Nucleated RBC % 0 Sodium 131 L Potassium 3.6 Chloride 99 L Carbon Dioxide 27 Anion Gap 5 BUN 10 Creatinine 0.51 Est GFR ( Amer) 146.0 Est GFR (Non-Af Amer) 113.5 BUN/Creatinine Ratio 19.6 Glucose 93 Hemoglobin A1c Osmolality 269 L Calcium 8.3 L Triglycerides 98 Cholesterol 192 LDL Cholesterol 125 HDL Cholesterol 47.9 Ur Random Sodium 12/07/17 12/07/17 04:50 05:50 WBC RBC Hgb Hct MCV MCH MCHC RDW Plt Count MPV Neut % (Auto) Lymph % (Auto) Person % (Auto) Eos % (Auto) Baso % (Auto) Absolute Neuts (auto) Absolute Lymphs (auto) Absolute Monos (auto) Absolute Eos (auto) Absolute Basos (auto) Absolute Nucleated RBC Nucleated RBC % Sodium Potassium Chloride Carbon Dioxide Anion Gap BUN Creatinine Est GFR ( Amer) Est GFR (Non-Af Amer) BUN/Creatinine Ratio Glucose Hemoglobin A1c 5.4 Osmolality Calcium Triglycerides Cholesterol LDL Cholesterol HDL Cholesterol Ur Random Sodium 130 Microbiology and Other Data: Microbiology 12/06/17 12:08 Urine Urine Culture - Preliminary Escherichia Coli Assess/Plan/Problems-Billing 87 yo female PMH HTN, hyperlipidemia, osteoarthritis, dementia, presented with left sided weakness, slurred speech. MRI shows acute right basal ganglia stroke. CTA shows no significant stenosis, echo no clot, no bubble done. #CVA - permissive htn per neurology but have had to add amlodipine 10mg, add back atenolol 100mg(home), continue prn hydralazine given SBP up to 230. - passed swallow. - PT and plan for [facility] once BP stabilized. - Non-diabetic, non-smoker. 5.4% A1C - appreciate neuro recs. #HTN - as above #HLD - LDL 125, HDL 48 - atorvastatin 20mg added #hyponatremia - improved 131 from 127. Sandra 130, Sosm 269. TSH wnl. #Diastolic Dysfunction on recent ECHO. - pEF 55-60%, not in exacerbation #Dementia, long standing. - f/u at outpatient. CODE: DNR/DNI medicine inpatient, plan for [facility] at [facility]
[2017-12-08] MEDS ORDERED: amLODIPine TAB* 5 MG PO SCH (09:00)
[2017-12-08] MEDS: Atenolol TAB* 50 MG PO SCH (09:27)
[2017-12-08] MEDS: Docusate CAP* 100 MG PO SCH (09:27)
[2017-12-08] MEDS: Senna TAB PO SCH (09:27)
[2017-12-08] MEDS: Oseltamivir CAP* 30 MG CAP PO SCH (09:27)
[2017-12-08] MEDS: Aspirin Low Dose CHEW TAB* 81 MG PO SCH (09:28)
[2017-12-08 11:48] VITALS: BP 162/99
--- NOTE | 2017-12-08 14:01 | DS ---
DISCHARGE SUMMARY: DATE OF ADMISSION: 12/06/17. DATE OF DISCHARGE: 12/08/17 ADMITTING PROVIDER: Michael Reza NP. PRIMARY CARE PHYSICIAN: Dr. Thomas. ATTENDING PHYSICIAN: Billy Velez MD. CONSULTING NEUROLOGIST: Roshan Quiroz MD. PRINCIPAL COMPLAINT: Left sided weakness and dysarthria, acute onset. PRINCIPAL DIAGNOSES: Acute right basal ganglia stroke; hypertension. HISTORY OF PRESENT ILLNESS AND HOSPITAL COURSE: Nell Birch is an 87-year- old female resident of [facility] with history of dementia, hypertension, cataracts , hyperlipidemia, osteoarthritis, osteopenia, is noted between 10:30 and 10:45 a.m., morning of admission, patient was dragging her left leg and had generalized left sided weakness. She was transported by EMS to [facility] Emergency Room. Dr. Roshan Quiroz of Neurology was consulted, touched base with the family. They reported around 9 a.m., patient was also having difficulty with speech via the phone with them. She was not thought to be a tPA candidate given the unreliable time of onset. Her initial CT head, noncontrast, did not show the evidence of gross acute onset of infarct, mass effect, or hemorrhage; possible aneurysm of the left middle cerebral artery with recommendation for CT angiogram which was performed, and [id number] chronic small vessel ischemic changes. CTA of the head showed no internal carotid artery stenosis by NASCET criteria. 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 No aneurysm, vascular malformation, occlusion, or stenosis of the visualized intracranial circulation and again chronic small vessel ischemic changes. MRI of the brain without contrast demonstrated punctate foci of restricted diffusion within the right basal ganglia consistent with subacute nonhemorrhagic infarct. Diffuse involutional changes with extensive chronic small vessel ischemic changes. Patient was continued on aspirin 81 mg daily. She was allowed to be permissively hypertensive with initial goals per Neurology of p.r.n. IV medications for systolics greater within 210 or diastolics greater than 100. She in fact did have high systolics peak of 209/93 and then diastolics recorded as 193/159. Then hospital day #1, she got 300 mg of aspirin suppository in the ED. She got 2 doses of 20 labetalol IV pushes in the emergency room. Hospital day #2, she was initially hypertensive in the morning 170/80, creeping up to the low 200s over 120s and restarted on her atenolol 100 mg daily. Then, additional amlodipine 5 and another additional amlodipine 5. She will be continued on amlodipine 10 mg daily. Blood pressures in the hospital day #3 ranged between 143 and 160. She was found to have evidence of urinary tract infection with greater than 100,000 E. coli. She was treated with 2 days of ceftriaxone. Will continue course of cefdinir as an outpatient. Patient has still residual left sided weakness. Linux Developer strength 3+/5, biceps 3+/5, not cooperative with lower extremity testing, but at least 4/5 in hip flexion. She has a left nasolabial droop. She was evaluated by Speech Therapy and has passed her swallow evaluation but still dysarthric. She was started on atorvastatin 20 mg daily. Her LDL was 126, HDL 57. She had a previous diagnosis of hyperlipidemia, but was not on statin on admission, unknown if previously had discontinued one. A1c was 5.4. Sodiums on admission were 127 to 131. On day of discharge, serum osmolality was 269. TSH was 1.16 and 2.68 on repeat testing; free T4 is 1.02. Patient will follow with Dr. Thomas at [facility] [place] [facility] (to [place]) to get physical therapy, she should get speech therapy to continue on her dysarthria and follow up with Roshan Quiroz within 2 to 4 weeks. She initially had a Mcmullen placed on admission likely for the altered mental status and was removed day of discharge and the patient was able to void freely. Patient is a DNR/DNI. DISCHARGE MEDICATIONS: Include: 1. Amlodipine 10 mg daily (new). 2. Aspirin 81 mg daily (old). 3. Atenolol 100 mg p.o. daily (old). 4. Atorvastatin 20 mg daily (new). 5. Tylenol 650 mg p.o. q. 6 hours p.r.n. (old). 6. Cefdinir 300 mg p.o. b.i.d. for 6 more tabs (new). 7. Magnesium hydroxide liquid 30 mL p.o. daily p.r.n. (old). 8. Senna/docusate 1 tab p.o. daily (old). DISCHARGE DIET: Heart healthy. ACTIVITY LEVEL: No restrictions and needing physical therapy, has residual left sided weakness. FOLLOWUP: Patient is to follow up with Dr. Thomas at [facility] within [address] Roshan Quiroz of Neurology within 2 to 4 weeks. TIME SPENT: Time spent on discharge is 40 minutes. [id number]/[facility] [place] #: [id number] RAND
== END 2017-12-08 13:58 | DRG 65 ==
LOC: ED 11:40 → MEDTELE 14:42
PROVIDERS: ADMIT Internal Medicine; ATTEND Internal Medicine
PROC: 0T9B70Z Drainage of Bladder with Drainage Device, Via Natural or Artificial Opening (ICD-10-PCS; principal; 2017-12-06)
PROC: 0TPBX0Z Removal of Drainage Device from Bladder, External Approach (ICD-10-PCS; 2017-12-08)
DX: I63.9 Cerebral infarction, unspecified (principal); G81.94 Hemiplegia, unspecified affecting left nondominant side; E87.1 Hypo-osmolality and hyponatremia; G31.89 Other specified degenerative diseases of nervous system; N39.0 Urinary tract infection, site not specified; F03.90 Unspecified dementia, unspecified severity, without behavioral disturbance, psychotic disturbance, mood disturbance, and anxiety; I10 Essential (primary) hypertension; E78.5 Hyperlipidemia, unspecified; R29.703 NIHSS score 3; M19.90 Unspecified osteoarthritis, unspecified site; M81.0 Age-related osteoporosis without current pathological fracture; R29.810 Facial weakness; R40.2362 Coma scale, best motor response, obeys commands, at arrival to emergency department; R40.2142 Coma scale, eyes open, spontaneous, at arrival to emergency department; R40.2252 Coma scale, best verbal response, oriented, at arrival to emergency department; M85.80 Other specified disorders of bone density and structure, unspecified site; Z66 Do not resuscitate; N60.19 Diffuse cystic mastopathy of unspecified breast; R47.1 Dysarthria and anarthria; R45.1 Restlessness and agitation; B96.20 Unspecified Escherichia coli [E. coli] as the cause of diseases classified elsewhere; Z79.82 Long term (current) use of aspirin; Z98.41 Cataract extraction status, right eye; Z98.42 Cataract extraction status, left eye; Z85.828 Personal history of other malignant neoplasm of skin; Z86.19 Personal history of other infectious and parasitic diseases
CPT/HCPCS: 36415; 70450; 70496; 70498; 70551; 71045; 80048; 80053; 80061; 81003; 81015; 82607; 82746; 83036; 83090; 83605; 83930; 83935; 84300; 84439; 84443; 84484; 85025; 85610; 85730; 86850; 86900; 86901; 87077; 87086; 87186; 93005; 93306; 94760; 99285; A9270-GY; J0360; J0696; J2060; Q9967